=== PATIENT | female | born 1935 | race Two or more races ===

== ENCOUNTER 2023-11-24 19:19 | Emergency (ER) | payer OTHER ==
[~2023-11-24] VITALS: Ht 172.7 cm; Wt 63.6 kg
[2023-11-24 19:24] VITALS: BP 127/69; PULSE 83; RESP 18; O2SAT 95
== END 2023-11-25 02:46 | disposition home or self-care (01) ==
LOC: ER 19:19 → EDBD 19:19 → ER 11-25 02:46
DX: M17.11 Unilateral primary osteoarthritis, right knee (principal); M25.561 Pain in right knee; E78.5 Hyperlipidemia, unspecified; I10 Essential (primary) hypertension; Z96.641 Presence of right artificial hip joint
CPT/HCPCS: 73502; 73562